=== PATIENT | male | born 1960 | race Caucasian/White ===

== ENCOUNTER 2017-08-04 13:20 | Emergency (ER) | payer OTHER ==
[~2017-08-04] VITALS: Ht 177.8 cm; Wt 74.8 kg
[2017-08-04 13:25] VITALS: BP 121/68
[2017-08-04] MEDS ORDERED: TETRACAINE HCL/PF 0.5% UD 2 ML BOTTLE ONE (13:36)
[2017-08-04] MEDS ORDERED: FLUORESCEIN SODIUM OPHTH 1 EA STRIP ONE (13:36)
[2017-08-04] MEDS ORDERED: TETRAcaine 5 ML BOTTLE EACHEYE ONE (14:00)
[2017-08-04] MEDS ORDERED: FLUORESCEIN SODIUM OPHTH 1 EA STRIP OP ONE (14:00)
== END 2017-08-04 13:56 | disposition home or self-care (01) ==
LOC: ER 13:25
DX: S05.01XA Injury of conjunctiva and corneal abrasion without foreign body, right eye, initial encounter (principal); H11.31 Conjunctival hemorrhage, right eye; X58.XXXA Exposure to other specified factors, initial encounter; Y93.89 Activity, other specified; Y92.098 Other place in other non-institutional residence as the place of occurrence of the external cause; Y99.8 Other external cause status
CPT/HCPCS: A4606; Z7610